=== PATIENT | female | born 1995 | race Caucasian/White ===

== ENCOUNTER → 2016-04-25 | Outpatient (REF) | LOC: WSOH 10:41 → WSPT 11:30 | DX: Z02.89 Encounter for other administrative examinations (principal) ==

== ENCOUNTER → 2016-05-05 | Outpatient (REF) | LOC: WSOH 10:00 | DX: Z02.89 Encounter for other administrative examinations (principal) ==

== ENCOUNTER → 2016-07-25 | Outpatient (REF) ==
[2016-07-25 20:48] LABS: HEPATITIS B SURFACE AB-QL Positive (())
== END ==
LOC: COL.EMP 10:12
DX: Z02.1 Encounter for pre-employment examination (principal)